=== PATIENT | female | born 1970 | race Caucasian/White ===

== ENCOUNTER 2022-12-19 13:16 | Inpatient (IN) ==
[2022-12-19 16:06] LABS: Urine Benzodiazepine Screen None Detected (None Detect); Urine Cannabinoids Screen None Detected (None Detect); Urine Opiates Screen None Detected (None Detect)
[2022-12-19] MEDS ORDERED: Al Hydrox/Mg Hydrox/Simet LIQ 30 ML UDC PO PRN (17:20)
[2022-12-19 18:15] LABS: Urine Appearance Cloudy; Urine Bilirubin Negative (Negative); Urine Blood 1+ (Negative); Urine Color Straw; Urine Glucose Negative (Negative); Urine Ketones 1+ (Negative); Urine Nitrite Negative (Negative); Urine Protein Negative (Negative); Urine Specific Gravity 1.003 (1.002-1.030); Urine Urobilinogen Negative (Negative)
[2022-12-19 18:36] LABS: Urine Bacteria 2+ (Absent); Urine Red Blood Cell 1+(3-5/hpf) (Absent); Urine Squamous Epithelial Cell Present (Absent); Urine White Blood Cell 3+(>20/hpf) (Absent)
[2022-12-20] MEDS: Multivitamins/Minerals TAB PO SCH (09:11)
[2022-12-21 08:30] LABS: ABS Basophils 0.1 10^3/uL (0.0-0.1); ABS Eosinophils 0.1 10^3/uL (0.0-0.5); ABS Lymphocytes 1.5 10^3/uL (1.0-4.8); ABS Monocytes 0.5 10^3/uL (0.0-0.9); ABS Neutrophils 3.2 10^3/uL (1.5-7.6); ABS Nucleated RBC 0.01 10^3/ul; Eosinophil % 1.5 %; Hematocrit 40.9 % (35-45); Hemoglobin 14.2 g/dL (11.5-14.3); Lymphocyte % 27.6 %; Mean Corpuscular Hemoglobin 29.5 pg (27-33); Mean Corpuscular Hgb Conc 34.8 g/dL (31-36); Mean Platelet Volume 10.4 fL (7.5-11.2); Nucleated Red Blood Cells % 0.2 /100 WBC (0.0-0.4); Platelet Count 223 10^3/uL (150-450); Red Blood Count 4.81 10^6/uL (3.63-4.92); Red Cell Distribution Width 13.8 % (12-17); White Blood Count 5.3 10^3/uL (3.8-11.8)
[2022-12-21 08:41] LABS: Albumin 3.9 g/dL (3.2-5.2); Albumin/Globulin Ratio 1.6 (1-3); Calcium 8.9 mg/dL (8.6-10.3); Creatinine, Serum 0.84 mg/dL (0.51-0.95); Globulin 2.5 g/dL (2-4); HDL Cholesterol 28.1 mg/dL; Total Bilirubin 0.5 mg/dL (0.2-1.0); Total Protein 6.4 g/dL (6.4-8.9)
[2022-12-21 09:23] LABS: TSH Ultra Thyroid Stim Horm 2.73 mcIU/mL (0.34-5.60)
[2022-12-21] MEDS: Multivitamins/Minerals TAB PO SCH (11:15)
[2022-12-22] MEDS: Multivitamins/Minerals TAB PO SCH ×2 (12:38→12:42)
[2022-12-23] MEDS: Multivitamins/Minerals TAB PO SCH (14:34)
[2022-12-24] MEDS: Multivitamins/Minerals TAB PO SCH (11:33)
[2022-12-25 08:59] VITALS: BP 128/51
[2022-12-25] MEDS: Multivitamins/Minerals TAB PO SCH (08:59)
== END 2022-12-25 16:30 | disposition home or self-care (01) | DRG 880 ==
LOC: ED 13:16 → EDHOLD 17:24 → BSU 20:12
PROVIDERS: ADMIT Student in an Organized Health Care Education/Training Program; ATTEND Student in an Organized Health Care Education/Training Program